=== PATIENT | female | born 1960 | race Caucasian/White ===

== ENCOUNTER 2017-01-08 13:46 | Emergency (ER) | payer MEDICAID, OTHER ==
[~2017-01-08] VITALS: Ht 162.6 cm; Wt 102.1 kg
[2017-01-08 13:58] VITALS: BP_SYST 162
--- NOTE | 2017-01-08 14:00 | NUR ---
Pt report received from ANUM Waddell. Pt c/o chest pressure, "weird" feeling to Right face and tingling down right arm x 2 days. No focal neurodeficits noted.
--- NOTE | 2017-01-08 14:05 | NUR ---
Dr. Tavares at bedside to assess pt.
--- NOTE | 2017-01-08 14:15 | NUR ---
# 20 gauge angiocath placed to RAC. Use of asceptic technique. Opsite placed over site. Blood return noted. Blood for lab drawn from site. Flushed with 10 cc of normal saline. No evidence of infiltration noted. Patient tolerated well.
[2017-01-08 14:35] LABS: EOSINOPHILS # (AUTO) 0.1 K/uL (0.0-0.4)
[2017-01-08 14:40] LABS: BASOPHILS # (AUTO) 0.2 K/uL (0.0-0.2); BASOPHILS % (AUTO) 1.6 % (0.0-2.0); EOSINOPHILS % (AUTO) 0.9 % (0.0-4.0); HEMATOCRIT 39.3 % (36-48); LYMPHOCYTES # (AUTO) 2.8 K/uL (1.0-5.5); LYMPHOCYTES % (AUTO) 27.8 % (20.5-51.5); MEAN CORPUSCULAR HEMOGLOBIN 28 pg (27-31); MEAN CORPUSCULAR HGB CONC 33 % (32-36); MEAN CORPUSCULAR VOLUME 83 fL (79.0-98.0); MONOCYTES # (AUTO) 0.6 K/uL (0.0-1.0); MONOCYTES % (AUTO) 6.3 % (1.7-9.3); NEUTROPHILS # (AUTO) 6.3 K/uL (1.8-7.7); NEUTROPHILS % (AUTO) 63.4 % (40.0-70.0); PLATELET COUNT (AUTO) 188 K/uL (130-430); RED BLOOD CELL COUNT(AUTO) 4.72 MIL/uL (4.2-6.2); RED CELL DISTRIBUTION WIDTH 13.4 % (9.0-15.0)
[2017-01-08 14:43] LABS: CREATININE 0.81 mg/dL (0.55-1.30); INR 0.9 (0.8-1.2); POTASSIUM 3.7 mmol/L (3.5-5.1); PROTHROMBIN TIME 10.3 SECS (9.5-12.5)
[2017-01-08 14:47] LABS: ALBUMIN 3.6 g/dL (3.4-4.8); TOTAL BILIRUBIN 0.3 mg/dL (0.0-1.0); TOTAL PROTEIN, SERUM 8.1 g/dL (6.4-8.3)
[2017-01-08 15:30] VITALS: BP_SYST 165
--- NOTE | 2017-01-08 15:30 | NUR ---
Patient given written and verbal discharge instructions and verbalizes understanding. ER MD discussed with patient the results and treatment provided. Patient in stable condition. ID arm band removed. IV catheter removed intact and dressing applied, no active bleeding. Patient educated on pain management and to follow up with PMD. Pain Scale 0/10. Opportunity for questions provided and answered.
== END 2017-01-08 15:30 | disposition home or self-care (01) ==
LOC: SED 13:46
DX: R00.2 Palpitations (principal); R20.2 Paresthesia of skin; F41.9 Anxiety disorder, unspecified
CPT/HCPCS: 36415; 70450-TC; 71010; 80053; 82550-TC; 84484; 85025; 85610-TC; 85730-TC; 93005; 99285

== ENCOUNTER 2017-01-18 10:02 | Emergency (ER) | payer OTHER ==
[~2017-01-18] VITALS: Ht 154.9 cm; Wt 90.7 kg
[2017-01-18 10:02] VITALS: BP_SYST 155
--- NOTE | 2017-01-18 10:02 | NUR ---
Patient ambulated to bed 3 to gown for eval. Report given to Ezequiel ROWAN.
--- NOTE | 2017-01-18 10:05 | NUR ---
ER at bedside examining patient.
--- NOTE | 2017-01-18 10:10 | NUR ---
PT PRESENTS TO ED C/O COUGH W/CLEAR SPUTUM. PT REPORTS H/O HTN. PT ADMITS TO MEDICATING AT HOME W/ PREVIOUSLY RX FROM OTHER DX.PT ADVISED AGAINST CONTINUING.PT VERBALIZED UNDERSTANDING. NO ACUTE RESP DISTRESS NOTED.
--- NOTE | 2017-01-18 10:50 | NUR ---
URINE SPECIMEN COLLECTED AND SENT TO LAB.
[2017-01-18 10:57] LABS: BASOPHILS # (AUTO) 0.1 K/uL (0.0-0.2); BASOPHILS % (AUTO) 0.6 % (0.0-2.0); EOSINOPHILS # (AUTO) 0.1 K/uL (0.0-0.4); EOSINOPHILS % (AUTO) 1.7 % (0.0-4.0); HEMATOCRIT 37.9 % (36-48); HEMOGLOBIN 12.6 g/dL (12.0-16.0); LYMPHOCYTES # (AUTO) 2.6 K/uL (1.0-5.5); LYMPHOCYTES % (AUTO) 31.5 % (20.5-51.5); MEAN CORPUSCULAR HEMOGLOBIN 27 pg (27-31); MEAN CORPUSCULAR HGB CONC 33 % (32-36); MEAN CORPUSCULAR VOLUME 82 fL (79.0-98.0); MONOCYTES # (AUTO) 0.4 K/uL (0.0-1.0); MONOCYTES % (AUTO) 4.7 % (1.7-9.3); NEUTROPHILS # (AUTO) 5.1 K/uL (1.8-7.7); NEUTROPHILS % (AUTO) 61.5 % (40.0-70.0); PLATELET COUNT (AUTO) 216 K/uL (130-430); RED CELL DISTRIBUTION WIDTH 13.1 % (9.0-15.0); WHITE BLOOD COUNT (AUTO) 8.3 K/uL (4.8-10.8)
[2017-01-18 11:03] LABS: CALCIUM 8.5 mg/dL (8.4-11.0); CREATININE 0.77 mg/dL (0.55-1.30); POTASSIUM 3.6 mmol/L (3.5-5.1)
[2017-01-18 11:07] LABS: INR 0.9 (0.8-1.2); PROTHROMBIN TIME 10.3 SECS (9.5-12.5)
[2017-01-18 11:09] LABS: ALBUMIN 3.2 g/dL (3.4-4.8); TOTAL BILIRUBIN 0.3 mg/dL (0.0-1.0); TOTAL PROTEIN, SERUM 7.3 g/dL (6.4-8.3)
[2017-01-18] MEDS ORDERED: DEXAMETHASONE SOD PHOSPHATE 10 MG/ML VIAL IM ONE (11:30)
[2017-01-18] MEDS ORDERED: KETOROLAC TROMETHAMINE 60 MG/2 ML VIAL IM ONE (11:30)
[2017-01-18] MEDS ORDERED: IPRATROPIUM/ALBUTEROL SULFATE 3 ML AMPUL.NEB INH ONE (11:30)
--- NOTE | 2017-01-18 11:37 | NUR ---
Patient in stable condition, receiving breathing treatment, tolerating well.
[2017-01-18 12:38] VITALS: BP_SYST 148
--- NOTE | 2017-01-18 12:38 | NUR ---
Patient given written and verbal discharge instructions and verbalizes understanding. ER MD discussed with patient the results and treatment provided. Given copies of tests performed in ER. Patient in stable condition. ID arm band removed. Rx of azithromycin, prednisone, and tessalon perles given. Patient educated on pain management and to follow up with PMD. Pain Scale 0/10. Opportunity for questions provided and answered.
== END 2017-01-18 12:38 | disposition home or self-care (01) ==
LOC: SED 10:02
DX: J20.9 Acute bronchitis, unspecified (principal); R03.0 Elevated blood-pressure reading, without diagnosis of hypertension; F41.9 Anxiety disorder, unspecified
CPT/HCPCS: 36415; 71010; 80053; 85025; 85610; 85730; 94640; 96372; 99285; J1100; J1885

== ENCOUNTER 2017-05-26 18:48 | Emergency (ER) | payer OTHER ==
[~2017-05-26] VITALS: Ht 154.9 cm; Wt 98.9 kg
[2017-05-26 18:51] VITALS: BP_SYST 177
--- NOTE | 2017-05-26 18:51 | NUR ---
Pt brought back to room 1 here for experiencing right sided facial numbness since yesterday. 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 Updated V/S, denies pain endorsed care to Ivet ROWAN.
--- NOTE | 2017-05-26 19:11 | NUR ---
Patient is complaining of right sided facial numbness and headache starting yesterday. Denies any Shortness of breath or chest pain. Denies any pain. 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 No other complaints/injuries per patient or as noted. Will continue to monitor.
--- NOTE | 2017-05-26 20:12 | NUR ---
Patient resting quietly. No acute distress noted. Vital signs within normal range.
[2017-05-26 20:22] LABS: BASOPHILS # (AUTO) 0.1 K/uL (0.0-0.2); EOSINOPHILS # (AUTO) 0.2 K/uL (0.0-0.4); EOSINOPHILS % (AUTO) 2.5 % (0.0-4.0); HEMATOCRIT 38.4 % (36-48); HEMOGLOBIN 12.6 g/dL (12.0-16.0); LYMPHOCYTES # (AUTO) 2.5 K/uL (1.0-5.5); LYMPHOCYTES % (AUTO) 29.6 % (20.5-51.5); MEAN CORPUSCULAR HEMOGLOBIN 28 pg (27-31); MEAN CORPUSCULAR HGB CONC 33 % (32-36); MEAN CORPUSCULAR VOLUME 85 fL (79.0-98.0); MONOCYTES # (AUTO) 0.7 K/uL (0.0-1.0); MONOCYTES % (AUTO) 8.1 % (1.7-9.3); NEUTROPHILS % (AUTO) 58.8 % (40.0-70.0); PLATELET COUNT (AUTO) 191 K/uL (130-430); RED BLOOD CELL COUNT(AUTO) 4.53 MIL/uL (4.2-6.2); RED CELL DISTRIBUTION WIDTH 12.6 % (9.0-15.0); WHITE BLOOD COUNT (AUTO) 8.5 K/uL (4.8-10.8)
[2017-05-26 20:28] LABS: CALCIUM 8.8 mg/dL (8.4-11.0); CREATININE 0.79 mg/dL (0.55-1.30); POTASSIUM 3.7 mmol/L (3.5-5.1)
[2017-05-26 20:32] LABS: ALBUMIN 3.3 g/dL (3.4-4.8); INR 0.9 (0.8-1.2); PROTHROMBIN TIME 9.8 SECS (9.5-12.5); TOTAL BILIRUBIN 0.3 mg/dL (0.0-1.0)
--- NOTE | 2017-05-26 20:34 | NUR ---
ER at bedside examining patient.
[2017-05-26 20:40] LABS: BILIRUBIN,URINE NEGATIVE (NEGATIVE); BLOOD, URINE 3+ (NEGATIVE); CLARITY/URINE CLEAR (CLEAR); COLOR,URINE YELLOW (YELLOW); GLUCOSE,URINE NEGATIVE (NEGATIVE); KETONES,URINE NEGATIVE (NEGATIVE); LEUKOCYTE ESTERASE ,URINE TRACE (NEGATIVE); NITRITE, URINE NEGATIVE (NEGATIVE); PH,URINE 6.5 (5.0-8.0); PROTEIN URINE NEGATIVE (NEGATIVE); UROBILINOGEN,URINE 0.2 (0.2-1.0)
[2017-05-26 20:46] LABS: BACTERIA,URINE FEW /HPF (None Seen); MUCUS,URINE None Seen /LPF (None Seen)
[2017-05-26] MEDS ORDERED: LISINOPRIL 10 MG TABLET (PRINIVIL) PO ONE (21:30)
[2017-05-26 21:34] VITALS: BP_SYST 167
--- NOTE | 2017-05-26 21:34 | NUR ---
Rachna boyer in ED - 05/26/17 at 2208 by [email or web address] SABA Guzman at bedside examining patient.
--- NOTE | 2017-05-26 21:34 | NUR ---
Patient given written and verbal discharge instructions and verbalizes understanding. ER MD discussed with patient the results and treatment provided. Patient in stable condition. ID arm band removed. Rx of Lisinopril given. Patient educated on pain management and to follow up with PMD in 2 days. Pain Scale 0/10 Opportunity for questions provided and answered.
== END 2017-05-26 21:34 | disposition home or self-care (01) ==
LOC: SED 18:48
DX: R20.0 Anesthesia of skin (principal); F41.9 Anxiety disorder, unspecified
CPT/HCPCS: 36415; 70450-TC; 80053; 81000-TC; 82550-TC; 83880; 84484; 85025; 85610-TC; 85730-TC; 87086; 93005; 99285

== ENCOUNTER 2017-06-17 10:41 | Emergency (ER) | payer OTHER ==
[~2017-06-17] VITALS: Ht 154.9 cm; Wt 97.5 kg
--- NOTE | 2017-06-17 10:45 | NUR ---
Patient to ER bed 6 to gown for evaluation. Side rails up. Report given to ANUM Raines.
[2017-06-17 10:56] VITALS: BP_SYST 165
--- NOTE | 2017-06-17 11:12 | NUR ---
Received pt aaox4. Pt states she has facial tingling, nausea, and dizziness since yesterday. States she is unable to get meds because she has no doctor name at this time. Will continue to monitor.
--- NOTE | 2017-06-17 11:15 | NUR ---
ER Dr. Estevez at bedside examining patient.
[2017-06-17] MEDS ORDERED: LORazepam 2 MG/ML VIAL (FOR ER USE) IVP ONE (12:00)
--- NOTE | 2017-06-17 12:00 | NUR ---
MRI consent filled out. Pt to MRI via wheelchair.
[2017-06-17] MEDS ORDERED: LORazepam 2 MG/ML VIAL (FOR ER USE) ONE (12:11)
[2017-06-17 13:08] VITALS: BP_SYST 151
--- NOTE | 2017-06-17 13:08 | NUR ---
Patient given written and verbal discharge instructions and verbalizes understanding. ER MD discussed with patient the results and treatment provided. Patient in stable condition. ID arm band removed. IV catheter removed intact and dressing applied, no active bleeding. Rx of lisinopril given. Patient educated on pain management and to follow up with PMD. Pain Scale 0/10. Opportunity for questions provided and answered.
== END 2017-06-17 13:08 | disposition home or self-care (01) ==
LOC: SED 10:41
DX: I10 Essential (primary) hypertension (principal); F41.9 Anxiety disorder, unspecified
CPT/HCPCS: 70551; 96374; 99284; J2060